=== PATIENT | female | born 1995 | race Caucasian/White ===

== ENCOUNTER 2022-02-10 17:24 | Emergency (ER) | payer OTHER, SELFPAY ==
--- NOTE | 2022-02-10 17:27 | ED.URI ---
HPI - URI/Sore Throat General Chief Complaint: Upper Respiratory Infection Stated Complaint: Sore Throat/Headache Time Seen by Provider: 02/10/22 17:28 Source: patient and RN notes reviewed History of Present Illness HPI Narrative: Patient is a 26-year-old female who presents the urgent care with complaints of sore throat, headache, sinus pressure and congestion. Patient states that it started last night. States that her and stepson both had a cold last week and seem to have improved. Patient denies of any known exposures to COVID, flu or strep. States that she has been taking Mucinex and allergy medication with mild relief. States that her sore throat is worse at night. Patient denies any fever, nausea or vomiting. No other acute complaints. No acute distress noted. Patient aware of the plan of care. Some parts of this dictation were generated by voice recognition software and may contain typographical and/or grammatical inaccuracies. Related Data Home Medications Medication Instructions Recorded Confirmed escitalopram oxalate 20 mg tablet 20 mg PO DAILY 02/10/22 02/10/22 hydroxyzine HCl 25 mg tablet 25 mg PO QID PRN Anxiety 02/10/22 02/10/22 trazodone 50 mg tablet 50 mg PO HS 02/10/22 02/10/22 Allergies Allergy/AdvReac Type Severity Reaction Status Date / Time No Known Allergies Allergy Verified 02/10/22 17:45 Review of Systems Review of Systems: CONSTITUTIONAL: Denies fever, chills, or sweats. EYES: Denies visual changes, redness, or discharge. ENT: Reports of sore throat, nasal congestion and frontal sinus tenderness CARDIOVASCULAR: Denies chest pain, palpitations, or edema. RESPIRATORY: Denies cough or dyspnea. GASTROINTESTINAL: Denies abdominal pain, nausea, vomiting, or diarrhea. GENITOURINARY: Denies dysuria or hematuria. SKIN: Denies rash or itching. MUSCULOSKELETAL: Denies back pain, joint pain, or myalgia. NEUROLOGIC: Reports of intermittent headaches All other systems reviewed are negative, except as documented in HPI. PMFSH Comments At the time of my signature, I reviewed and agree with the nursing past medical, surgical, social, and family history. There is no relevant family history pertinent to the patient complaint. Exam Narrative: GENERAL: This is a well-nourished, well-developed patient, in no apparent distress. HEAD: normocephalic, atraumatic. Mild frontal sinus tenderness EYES: PERRL. Sclera clear/white. Vision is grossly intact. EARS: External ears normal, auditory canals clear and without drainage, TMs normal without perforation. Hearing grossly intact. NOSE: External nose normal with no obvious nasal discharge, nares without redness, no rhinorrhea. THROAT: Mucous membranes moist, posterior pharynx clear. Moderate postnasal drainage NECK: Neck supple, non-tender without lymphadenopathy CARDIOVASCULAR: Regular rate and rhythm without murmurs, gallops, or rubs. RESPIRATORY: Clear to auscultation. Breath sounds equal bilaterally. No wheezes, rales, or rhonchi. SKIN: warm, intact with no suspicious lesions or rash, good texture and turgor. NEURO: awake, alert, and oriented to person, place and time. There were no obvious focal neurologic abnormalities. EXTREMITIES: No clubbing, cyanosis, or edema. Course Course Level of Care: Express Care Visit Vital Signs Vital signs: Vital Signs Temperature 98.4 F 02/10/22 17:42 Pulse Rate 94 02/10/22 17:42 Respiratory Rate 16 02/10/22 17:42 Blood Pressure 99/72 L 02/10/22 17:42 Pulse Oximetry 99 02/10/22 17:42 Oxygen Delivery Room Air 02/10/22 17:42 Temperature 98.4 F 02/10/22 17:42 Pulse Rate 94 02/10/22 17:42 Respiratory Rate 16 02/10/22 17:42 Blood Pressure 99/72 L 02/10/22 17:42 Pulse Oximetry 99 02/10/22 17:42 Oxygen Delivery Room Air 02/10/22 17:42 Reviewed MDM - URI/Sore Throat MDM Narrative Medical decision making narrative: Reviewed lab results with the patient. She is aware that
[2022-02-10 17:42] VITALS: BP 99/72; PULSE 94; RESP 16; TEMP 36.9; O2SAT 99
== END 2022-02-10 18:05 | disposition home or self-care (01) ==
PROVIDERS: Emergency Provider Nurse Practitioner Family
DX: B34.9 Viral infection, unspecified (principal); J02.9 Acute pharyngitis, unspecified
CPT/HCPCS: 87081; 87880; 99213; G0463

== ENCOUNTER 2022-04-02 19:15 | Emergency (ER) | payer OTHER, SELFPAY ==
[2022-04-02 19:20] VITALS: BP 121/81; PULSE 75; RESP 20; TEMP 36.6; O2SAT 99
--- NOTE | 2022-04-02 19:29 | ED.ABDPAIN ---
HPI - Abdominal Pain General Chief Complaint: Abdominal Pain Stated Complaint: upper abdomen pain Time Seen by Provider: 04/02/22 19:29 Source: patient, family and old records reviewed Mode of arrival: ambulatory Limitations: no limitations History of Present Illness HPI narrative: 27 year old female accompanied by family presents to express care with complaints of epigastric abdominal pain which started this afternoon. Patient reports that she has not eaten today and feels some nausea but denies any emesis. Patient reports that she experienced dizziness yesterday evening and passed out and she went to ER yesterday evening and she received IV fluids for dehydration and IV Pepcid and also received CT scan of her head which was negative.patient denies any fevers chills or sweats, denies any vomiting or diarrhea. Patient denies any shortness of breast, no chest pain or any diaphoresis or any radiation of discomfort to her back or arm or jaw, denies any dizziness at this time. Patient reports that she has been COVID vaccinated. MD elicited complaint: abdominal pain (epigastric) Onset (ago): minute(s) (1500 today) Location: epigastric Pain scale (0-10): 9 Quality: burning Treatments prior to arrival: other (none) Related Data Home Medications Medication Instructions Recorded Confirmed escitalopram oxalate 20 mg tablet 20 mg PO DAILY 02/10/22 04/02/22 hydroxyzine HCl 25 mg tablet 25 mg PO QID PRN Anxiety 02/10/22 04/02/22 trazodone 50 mg tablet 50 mg PO HS 02/10/22 04/02/22 Allergies Allergy/AdvReac Type Severity Reaction Status Date / Time No Known Allergies Allergy Verified 04/02/22 19:44 Review of Systems Review of Systems: CONSTITUTIONAL: Denies fever, chills, or sweats. EYES: Denies visual changes, redness, or discharge. ENT: Denies rhinorrhea, congestion, sore throat, or otalgia. CARDIOVASCULAR: Denies chest pain, palpitations, or edema. RESPIRATORY: Denies cough or dyspnea. GASTROINTESTINAL:Upper epigastric abdominal pain, nausea, no vomiting, or diarrhea reports burning sensation GENITOURINARY: Denies dysuria or hematuria. SKIN: Denies rash or itching. MUSCULOSKELETAL: Denies back pain, joint pain, or myalgia. NEUROLOGIC: Denies headache, numbness, or weakness. PSYCHIATRIC: Positive for history of anxiety or depression. All systems reviewed & are unremarkable except as noted in HPI and below PMFSH Past Medical History Medical History (Updated 04/04/22 @ 08:13 by Sinai Bruno NP) Anxiety and depression Surgical History Surgical History (Updated 04/04/22 @ 08:15 by Sinai Bruno NP) H/O tubal ligation Hx of cholecystectomy Previous section X2 Social History Social History (Updated 04/04/22 @ 08:16 by Sinai Bruno NP) Smoking packs per day: 0.5 Smoking cigarettes per day: 10.0 Years smoked: 13 Smoking pack-years: 6.50 Smoking status: Current every day smoker Tobacco type: cigarettes Alcohol intake: unknown Substance use type: does not use Living arrangements: with family Gender identity (if verbalized by the patient): Female Comments At time of signature, agree with nursing past medical, surgical, social and family history. There is no relevant family history pertinent to the presenting complaint Exam Narrative: GENERAL: Well-appearing, well-nourished, and in no acute distress. HEAD: Normocephalic, atraumatic. EYES: PERRLA and EOMI. ENT: Nares clear, no rhinorrhea or epistaxis. Mucous membranes moist. TMs normal with good light reflex, throat normal with no lesions or exudates or tonsil swelling. NECK: Supple.no lymphadenopathy CHEST: Clear to auscultation. No respiratory distress.SAO2 99% on room air HEART: Regular rate and rhythm. No murmur heard. Normal peripheral pulses. ABDOMEN: Soft, tender epigastric region no lower abdominal pain, nondistended, normal active bowel sounds.no incidence of vomiting reports some nausea and burning sensation to epigastr
== END 2022-04-02 19:50 | disposition home or self-care (01) ==
PROVIDERS: Emergency Provider Registered Nurse
DX: K52.9 Noninfective gastroenteritis and colitis, unspecified (principal); F17.210 Nicotine dependence, cigarettes, uncomplicated; F41.9 Anxiety disorder, unspecified; F32.A Depression, unspecified
CPT/HCPCS: 99213; G0463